=== PATIENT | female | born 1990 | race Caucasian/White ===

== ENCOUNTER 2017-11-25 04:16 | Emergency (ER) | payer OTHER ==
[~2017-11-25] VITALS: Ht 160 cm; Wt 114.2 kg
[~2017-11-25 04:16] MED LIST: ADDERALL20 MG PO; KLONOPIN1 MG PO; PRISTIQ100 MG PO
[2017-11-25 05:30] VITALS: BP 123/72
== END 2017-11-25 05:28 ==
LOC: ED 04:16
DX: O26.893 Other specified pregnancy related conditions, third trimester (principal); Z3A.34 34 weeks gestation of pregnancy; R10.30 Lower abdominal pain, unspecified; M54.5 Low back pain
CPT/HCPCS: J3475

== ENCOUNTER 2024-01-30 09:35 | Emergency (ER) | payer OTHER ==
[~2024-01-30 09:35] MED LIST changes: +PERCOCET 5/325M1 TAB PO; +TYLENOL # 31 TA1 PO
== END 2024-01-30 10:09 | disposition left against medical advice (07) | DRG 951 ==
LOC: ED 09:35 → LWOBS 10:09
DX: Z53.21 Procedure and treatment not carried out due to patient leaving prior to being seen by health care provider (principal)